=== PATIENT | male | born 1965 | race Asian ===

== ENCOUNTER 2017-04-23 09:48 | Emergency (ER) | payer OTHER ==
[~2017-04-23] VITALS: Ht 165 cm; Wt 72.0 kg
[2017-04-23 09:50] VITALS: BP 143/93; PULSE 96; TEMP 98.7
[2017-04-23] MEDS ORDERED: BLOOD PRESSURE MED (09:55)
[2017-04-23] MEDS ORDERED: ASPIRIN 81M81 MG/TA2 PO (09:55)
[2017-04-23] MEDS ORDERED: GENTAMICIN EYE D5 ML OS (10:21)
[2017-04-23] MEDS ORDERED: AMOXICILLIN 50500 MG PO (10:48)
== END 2017-04-23 10:56 | disposition home or self-care (01) ==
LOC: COL.ER 09:48
DX: B99.9 Unspecified infectious disease (principal); H10.89 Other conjunctivitis; I10 Essential (primary) hypertension